=== PATIENT | male | born 1960 | race Caucasian/White ===

== ENCOUNTER 2020-12-18 19:40 | Inpatient (IN) ==
--- NOTE | 2020-12-18 20:03 | Emergency Department Note ---
Impression & Plan Atrial fibrillation with rapid ventricular response, Acute non-ST elevation myocardial infarction (NSTEMI) ED Provider Note NAME: WESTON RODRIGUEZ JR AGE: 60 SEX: M : 1960 ARRIVES VIA: Walk-In INFORMANT: Patient, ED PROVIDER(S): Michi Waite MD Chief Complaint: Chest pain HPI: Patient does present with intermittent chest pain that he describes as a tightness centralized and nonradiating. No prior history of heart or lung disease. The patient does take medication for hypertension denies any recent ch anges or missed doses. Patient states that he did have recurrence of some chest tightness but he does not believe it is worse with exertion. The patient denies any fevers or chills. No shortness of breath or cough. Patient is vaccinated for Covid. No lower extremity swelling. No history of DVT or PE. Patient has not noticed any increase in heart rate. Patient denies any alcohol tobacco or drug use. Patient does relate that he has family history of heart attack in his father in his 50s. Patiently currently rates his discomfort as a 3 or 4 out of 10. Patient states there are no exacerbating or remitting factors. ROS: See HPI for pertinent positives and negatives. A total of 10 systems were reviewed and otherwise negative. Past medical history: See below Surgical history: See below Social history: See below Physical Exam: GENERAL: NAD, wearing glasses, wearing a mask, non-toxic. EYE EXAM: Normal conjunctiva. PERRL, no anisocoria and EOM's grossly intact w/o pain. NECK: Supple, no nuchal rigidity, no adenopathy, non-tender. No signs of meningismus. LUNGS: Clear to auscultation. Normal chest wall mechanics. HEART: Tachycardic and irregularly irregular, no MRG. ABDOMEN: Abdomen soft, non-tender, normo-active bowel sounds, no masses, no rebound or guarding. BACK: No CVA TTP. SKIN: No rashes and no bruising. UPPER EXTREMITIES: Upper extremities are grossly normal. LOWER EXTREMITIES: Grossly normal, no edema. Negative Homans' sign bilaterally. NEURO EXAM: A&O x3, cranial nerves II-XII grossly intact, normal speech, moves all 4 extremities on command w/o issue. Differential diagnoses: Cardiac ischemia, aortic dissection, pulmonary embolism, pneumothorax, pneumonia, pericarditis, myocarditis, esophageal rupture, GERD, cholecystitis, pancreatitis, musculoskeletal, as well as other pathologies. Course: Patient was seen and evaluated the bedside. Full history physical exam was performed. EKG interpreted by me A. fib with RVR, rate of 139, normal QRS, normal axis, ST depressions anteriorly and laterally. Acute change from comparison EKG in 2013. Repeat EKG interpreted by me completed at 2148 A. fib with RVR, rate of 119, QRS is normal, normal axis, ST depressions have improved anteriorly. Repeat EKG interpreted by me completed at 2233 Normal sinus rhythm, rate of 84, normal intervals, normal axis, T wave inversion in lead III. ST depressions are not present anteriorly or laterally. Imaging Studies: See Below Cardiac monitoring: An order was placed for continuous cardiac monitoring. The monitor shows a rate of 128 with irregularly irregular rhythm. MDM: Patient does present with chest pain. Blood work is obtained. Patient's EKG does show some ST depressions but may be rate related. Patient states his pain is currently 3 out of 10. The patient has not had any nausea vomiting or exertional symptoms. No prior history of heart or lung disease. The patient was ordered aspirin and Lopressor. Given the possibility of NSTEMI versus the A. fib Heparin was ordered. Patient did have improvement in his heart rate and the depressions that were seen in the previous EKG. Subsequently the patient was in normal sinus rhythm. I did speak with the on-call dural mechanic Dr. Balderas who agreed with the current plan of care given the improvement in the heart rate and ST changes initially seen. I did speak with the on-call hospitalist Dr. Dooley and the patient was admitted to the medicine service. Patient did convert back to normal sinus rhythm. Critical Care: I have personally spent 95 minutes of critical care time in direct management of this patient. This includes bedside care, interpretation of diagnostic studies, and testing, discussion with consultants, patient, and family members, and other require inpatient management activities. This 95 minutes is in excess of all separately billable procedures. Past Med/Surg History Medical History H/O: HTN (hypertension) Surgical History No pertinent past surgical history Family History Father Heart disease Social History Smoking Status: Never smoker Second Hand Exposure: No; Do You Dip or Chew Tobacco: No; Tobacco Cessation Education Requested by Patient: No Hx Alcohol Use: No Hx Substance Use: No Preferred Language: Bruneian Communication Ability: Effective Managed Care Analyst Required: No Beliefs That Will Affect Care: None Current Living Situation: Significant Other Other Information That Helps Us Care for You: No Feels Safe at Home: Yes Safety Concerns: Feels Safe At This Time Assistive Devices: None Allergies Allergies Allergy/AdvReac Type Severity Reaction Status Date / Time No Known Allergies Allergy Unverified 12/18/20 21:13 Home Meds Home Medications Medication Instructions Recorded Confirmed albuterol sulfate 90 mcg/actuation 2 puff INHALATION Q6H PRN 12/18/20 12/18/20 aerosol inhaler aspirin 81 mg tablet,delayed 81 mg PO HS 12/18/20 12/18/20 release diphenhydramine HCl 25 mg tablet 12.5 mg PO HS PRN 12/18/20 12/18/20 labetalol 200 mg tablet 200 mg PO BID 12/18/20 12/18/20 loratadine 10 mg tablet 10 mg PO DAILY PRN 12/18/20 12/18/20 sertraline 100 mg tablet 150 mg PO DAILY 12/18/20 12/18/20 Results & Data (ED) Vital Signs Vital Signs - 24 hr 12/18/20 19:47 12/18/20 20:28 12/18/20 20:35 Temperature 36.6 C Temperature Source Temporal Artery Scan Pulse Rate 72 156 H 128 H Pulse Rate from SpO2 Sensor 143 H Respiratory Rate 16 24 Respiratory Depth Normal Blood Pressure 214/91 H 179/122 H Blood Pressure Mean 132 Blood Pressure Position Sitting Pulse Oximetry 94 94 Oxygen Delivery Method Room Air Room Air Sepsis Recent Fever Within 48 Hours No Sepsis New/Unexplained Change in Mental Status No Sepsis Action Taken by Nursing No Action Required 12/18/20 21:00 12/18/20 21:24 12/18/20 21:30 Temperature Temperature Source Pulse Rate 138 H 124 H 117 H Pulse Rate from SpO2 Sensor 117 H 111 H Respiratory Rate 21 24 Respiratory Depth Blood Pressure 134/102 H 148/101 H Blood Pressure Mean 116 Blood Pressure Position Pulse Oximetry 95 95 Oxygen Delivery Method Room Air Room Air Sepsis Recent Fever Within 48 Hours Sepsis New/Unexplained Change in Mental Status Sepsis Action Taken by Nursing 12/18/20 22:00 12/18/20 22:05 12/18/20 22:30 Temperature Temperature Source Pulse Rate 131 H 128 H 84 Pulse Rate from SpO2 Sensor 108 H 84 Respiratory Rate 27 H 26 H Respiratory Depth Blood Pressure 124/93 124/93 132/79 Blood Pressure Mean 103 96 Blood Pressure Position Pulse Oximetry 93 95 Oxygen Delivery Method Room Air Room Air Sepsis Recent Fever Within 48 Hours Sepsis New/Unexplained Change in Mental Status Sepsis Action Taken by Jail Medications Current Medication List: was personally reviewed by me Laboratory Data Attestation: I reviewed the patient's lab results. Result diagrams: 12/18/20 19:55 12/18/20 19:55 Lab Results 12/18/20 12/18/20 12/18/20 Range/Units 19:55 19:55 19:55 WBC 15.89 H (4.8-10.8) K/uL RBC 5.04 (4.7-6.1) M/uL Hgb 16.2 (14.0-18.0) g/dL Hct 47.1 (42-52) % MCV 93.5 (80-100) fL MCH 32.1 (25-34) pg MCHC 34.4 (32-36) g/dL RDW Std Deviation 48.4 H (36.4-46.3) fL RDW Coeff of Joon 14.2 (11.5-14.5) % Plt Count 262 (130-400) K/uL MPV 10.5 H (7.4-10.4) fL Immature Gran % (Auto) 0.3 % Neut % (Auto) 85.8 % Lymph % (Auto) 8.6 % Alexander % (Auto) 4.1 % Eos % (Auto) 1.1 % Baso % (Auto) 0.1 % Neut # (Auto) 13.62 H (1.4-6.5) K/uL Lymph # (Auto) 1.37 (1.2-3.4) K/uL Alexander # (Auto) 0.65 H (0.11-0.59) K/uL Eos # (Auto) 0.18 (0-0.5) K/uL Baso # (Auto) 0.02 (0-0.2) K/uL Immature Gran # (Auto) 0.05 H (0.00-0.02) K/uL PT 10.3 (9.0-12.0) Seconds INR 1.0 (0.9-1.1) APTT 26.5 (21.0-31.0) Seconds PTT Ratio 1.0 Sodium 140 (136-145) mmol/L Potassium 4.0 (3.5-5.1) mmol/L Chloride 109 H (98-107) mmol/L Carbon Dioxide 25 (21-32) mmol/L Anion Gap 6.0 (3-11) BUN 16 (7-18) mg/dl Creatinine 1.15 (0.6-1.4) mg/dl Est Cr Clr Drug Dosing 84.5 ml/min Est GFR ( Amer) 80.3 ml/min Est GFR (Non-Af Amer) 69.3 ml/min BUN/Creatinine Ratio 13.8 (10-20) Glucose 219 H (70-99) mg/dl Calcium 9.4 (8.5-10.1) mg/dl Phosphorus (2.5-4.9) mg/dl Magnesium (1.8-2.4) mg/dl Total Bilirubin 0.6 (0.2-1) mg/dl AST 21 (15-37) U/L ALT 31 (12-78) U/L Alkaline Phosphatase 68 (45-117) U/L Troponin I 1.150 H* (0-0.045) ng/ml Total Protein 7.9 (6.4-8.2) gm/dl Albumin 3.9 (3.4-5.0) gm/dl Globulin 4.0 (2.5-4.0) gm/dl Albumin/Globulin Ratio 1.0 (0.9-2) Lipase (73-393) U/L Procalcitonin (0-0.5) ng/ml TSH (0.300-4.500) uIu/ml COVID-19 Eval Order SARS-CoV-2 (PCR) (Negative) 12/18/20 12/18/20 12/18/20 Range/Units 19:55 19:55 20:39 WBC (4.8-10.8) K/uL RBC (4.7-6.1) M/uL Hgb (14.0-18.0) g/dL Hct (42-52) % MCV (80-100) fL MCH (25-34) pg MCHC (32-36) g/dL RDW Std Deviation (36.4-46.3) fL RDW Coeff of Joon (11.5-14.5) % Plt Count (130-400) K/uL MPV (7.4-10.4) fL Immature Gran % (Auto) % Neut % (Auto) % Lymph % (Auto) % Alexander % (Auto) % Eos % (Auto) % Baso % (Auto) % Neut # (Auto) (1.4-6.5) K/uL Lymph # (Auto) (1.2-3.4) K/uL Alexander # (Auto) (0.11-0.59) K/uL Eos # (Auto) (0-0.5) K/uL Baso # (Auto) (0-0.2) K/uL Immature Gran # (Auto) (0.00-0.02) K/uL PT (9.0-12.0) Seconds INR (0.9-1.1) APTT (21.0-31.0) Seconds PTT Ratio Sodium (136-145) mmol/L Potassium (3.5-5.1) mmol/L Chloride (98-107) mmol/L Carbon Dioxide (21-32) mmol/L Anion Gap (3-11) BUN (7-18) mg/dl Creatinine (0.6-1.4) mg/dl Est Cr Clr Drug Dosing ml/min Est GFR ( Amer) ml/min Est GFR (Non-Af Amer) ml/min BUN/Creatinine Ratio (10-20) Glucose (70-99) mg/dl Calcium (8.5-10.1) mg/dl Phosphorus 3.3 (2.5-4.9) mg/dl Magnesium 2.3 (1.8-2.4) mg/dl Total Bilirubin (0.2-1) mg/dl AST (15-37) U/L ALT (12-78) U/L Alkaline Phosphatase (45-117) U/L Troponin I (0-0.045) ng/ml Total Protein (6.4-8.2) gm/dl Albumin (3.4-5.0) gm/dl Globulin (2.5-4.0) gm/dl Albumin/Globulin Ratio (0.9-2) Lipase 169 (73-393) U/L Procalcitonin < 0.05 (0-0.5) ng/ml TSH 0.737 (0.300-4.500) uIu/ml COVID-19 Eval Order Covid19 at [facility] SARS-CoV-2 (PCR) (Negative) 12/18/20 Range/Units 20:39 WBC (4.8-10.8) K/uL RBC (4.7-6.1) M/uL Hgb (14.0-18.0) g/dL Hct (42-52) % MCV (80-100) fL MCH (25-34) pg MCHC (32-36) g/dL RDW Std Deviation (36.4-46.3) fL RDW Coeff of Joon (11.5-14.5) % Plt Count (130-400) K/uL MPV (7.4-10.4) fL Immature Gran % (Auto) % Neut % (Auto) % Lymph % (Auto) % Alexander % (Auto) % Eos % (Auto) % Baso % (Auto) % Neut # (Auto) (1.4-6.5) K/uL Lymph # (Auto) (1.2-3.4) K/uL Alexander # (Auto) (0.11-0.59) K/uL Eos # (Auto) (0-0.5) K/uL Baso # (Auto) (0-0.2) K/uL Immature Gran # (Auto) (0.00-0.02) K/uL PT (9.0-12.0) Seconds INR (0.9-1.1) APTT (21.0-31.0) Seconds PTT Ratio Sodium (136-145) mmol/L Potassium (3.5-5.1) mmol/L Chloride (98-107) mmol/L Carbon Dioxide (21-32) mmol/L Anion Gap (3-11) BUN (7-18) mg/dl Creatinine (0.6-1.4) mg/dl Est Cr Clr Drug Dosing ml/min Est GFR ( Amer) ml/min Est GFR (Non-Af Amer) ml/min BUN/Creatinine Ratio (10-20) Glucose (70-99) mg/dl Calcium (8.5-10.1) mg/dl Phosphorus (2.5-4.9) mg/dl Magnesium (1.8-2.4) mg/dl Total Bilirubin (0.2-1) mg/dl AST (15-37) U/L ALT (12-78) U/L Alkaline Phosphatase (45-117) U/L Troponin I (0-0.045) ng/ml Total Protein (6.4-8.2) gm/dl Albumin (3.4-5.0) gm/dl Globulin (2.5-4.0) gm/dl Albumin/Globulin Ratio (0.9-2) Lipase (73-393) U/L Procalcitonin (0-0.5) ng/ml TSH (0.300-4.500) uIu/ml COVID-19 Eval Order SARS-CoV-2 (PCR) NEGATIVE (Negative) Administered Medications Heparin Sodium/Dextrose (Heparin Sodium/Dextrose) 25,000 units in 500 mls @ 20 mls/hr IV .Q24H [facility]; Protocol Stop: 01/17/21 20:59 Last Admin: 12/18/20 21:00 Dose: 1,000 units/hr, 20 mls/hr Documented by: [id number] Cosigned by: [id number] Lactated Ringer's (Lr) 1,000 mls @ 80 mls/hr IV .[id number] STA Stop: 12/19/20 11:07 Last Admin: 12/18/20 22:53 Dose: 80 mls/hr Documented by: [id number] Discontinued Medications Aspirin (Aspirin Chew 324 Mg) 324 mg PO NOW STA Stop: 12/18/20 20:11 Last Admin: 12/18/20 20:27 Dose: 324 mg Documented by: [id number] Heparin Sodium (Porcine) (Heparin Sod (Porcine) 1000 Unit/Ml) 1 units IV NOW ONE Stop: 12/18/20 20:52 Last Admin: 12/18/20 21:00 Dose: 4,000 units Documented by: [id number] Cosigned by: [id number] Heparin Sodium (Porcine) (Heparin Sod (Porcine) 1000 Unit/Ml) 4,000 units IV NOW ONE Stop: 12/18/20 21:16 Last Admin: 12/18/20 21:54 Dose: Not Given Documented by: [id number] Heparin Sodium/Dextrose (Heparin Iv Adult Wt-Based Low-Dose With Bolus Protocol) 1 ea IV NOW STA; Protocol Stop: 12/18/20 20:37 Last Admin: 12/18/20 21:01 Dose: Not Given Documented by: [id number] Sodium Chloride (Nss 1000ml) 500 mls @ 999 mls/hr IV .Q31M ONE Stop: 12/18/20 20:43 Last Infusion: 12/18/20 21:54 Dose: 0 mls/hr Documented by: [id number] Admin: 12/18/20 20:30 Dose: 999 mls/hr Documented by: [id number] Lactated Ringer's (Lr) 1,000 mls @ 200 mls/hr IV .Q5H ONE Stop: 12/19/20 03:14 Last Admin: 12/19/20 00:18 Dose: Not Given Documented by: [id number] Labetalol HCl (Labetalol Hcl 200 Mg Tab) 200 mg PO NOW STA Stop: 12/18/20 22:17 Last Admin: 12/18/20 22:53 Dose: 200 mg Documented by: [id number] Metoprolol Tartrate (Metoprolol Tartrate 1 Mg/Ml Vial) 5 mg IV NOW STA Stop: 12/18/20 20:11 Last Admin: 12/18/20 20:28 Dose: 5 mg Documented by: [id number] Metoprolol Tartrate (Metoprolol Tartrate 1 Mg/Ml Vial) 5 mg IV Q5M PRN PRN Reason: Tachycardia Stop: 01/17/21 21:15 Last Admin: 12/18/20 22:05 Dose: 5 mg Documented by: [id number] Admin: 12/18/20 21:24 Dose: 5 mg Documented by: [id number] Nitroglycerin (Nitroglycerin Sl 0.4 Mg/Tab Tab) 0.4 mg SL NOW STA Stop: 12/18/20 21:37 Last Admin: 12/18/20 21:53 Dose: 0.4 mg Documented by: [id number] Imaging Data Radiologist's Impression: Chest X-Ray 12/18/20 19:54 XR chest 1V portable CLINICAL HISTORY: Chest Pain COMPARISON STUDY: Chest radiograph October 27, 2012. FINDINGS: There is borderline cardiomegaly. Slight elevation of the left hemidiaphragm is present. Minimal left basilar opacity favors atelectasis. No consolidation is identified. There is no evidence for pulmonary edema. Patient is slightly rotated. IMPRESSION: No acute cardiopulmonary findings. ACT 112: Negative or not required by law. Electronically signed by: González Nunez M.D. 12/18/2020 8:21 PM Discharge Plan Visit Data Chief Complaint: Chest Pain Stated Complaint: TIGHTNESS IN CHEST ED Provider: Michi Waite Discharge Problem: Atrial fibrillation with rapid ventricular response, Acute non-ST elevation myocardial infarction (NSTEMI) Patient Disposition: Admitted As Inpatient Discharge Instructions Interventions: ED Discharge Assessment Last Done: 12/18/20 23:19
[2020-12-18] MEDS ORDERED: METOPROLOL TARTRATE 1 MG/ML VIAL IV STA (20:10)
[2020-12-18] MEDS ORDERED: ASPIRIN CHEW 324 MG PO STA (20:10)
[2020-12-18] MEDS ORDERED: SODIUM CHLORIDE 0.9% 1000ML 500 ML IV ONE (20:13)
[2020-12-18 20:14] LABS: Basophils # (auto) 0.02 K/uL (0-0.2); Basophils % (auto) 0.1 %; Eosinophils # (auto) 0.18 K/uL (0-0.5); Eosinophils % (auto) 1.1 %; Hematocrit (blood only) 47.1 % (42-52); Hemoglobin 16.2 g/dL (14.0-18.0); Immature Granulocytes # (auto) 0.05 K/uL (0.00-0.02); Immature Granulocytes % (auto) 0.3 %; Lymphocytes # (auto) 1.37 K/uL (1.2-3.4); Lymphocytes % (auto) 8.6 %; Mean Corpuscular Hemoglobin 32.1 pg (25-34); Mean Corpuscular Hgb Conc 34.4 g/dL (32-36); Mean Corpuscular Volume 93.5 fL (80-100); Mean Platelet Volume 10.5 fL (7.4-10.4); Monocytes # (auto) 0.65 K/uL (0.11-0.59); Monocytes % (auto) 4.1 %; Neutrophils # (auto) 13.62 K/uL (1.4-6.5); Neutrophils % (auto) 85.8 %; Platelet Count 262 K/uL (130-400); RDW Coefficient of Variation 14.2 % (11.5-14.5); RDW Standard Deviation 48.4 fL (36.4-46.3); Red Blood Count 5.04 M/uL (4.7-6.1); White Blood Count 15.89 K/uL (4.8-10.8)
--- NOTE | 2020-12-18 20:22 | XRay Report ---
XR chest 1V portable CLINICAL HISTORY: Chest Pain COMPARISON STUDY: Chest radiograph October 27, 2012. FINDINGS: There is borderline cardiomegaly. Slight elevation of the left hemidiaphragm is present. Mi nimal left basilar opacity favors atelectasis. No consolidation is identified. There is no evidence f or pulmonary edema. Patient is slightly rotated. IMPRESSION: No acute cardiopulmonary findings. ACT 112: Negative or not required by law. Electronically signed by: González Nunez M.D. 12/18/2020 8:21 PM
[2020-12-18 20:25] LABS: Partial Thromboplastin Time 26.5 Seconds (21.0-31.0); Prothrombin Time 10.3 Seconds (9.0-12.0)
[2020-12-18] MEDS ORDERED: Heparin IV Adult Wt-Based Low-Dose WITH Bolus Protocol IV STA (20:36)
[2020-12-18 20:38] LABS: Albumin Level 3.9 gm/dl (3.4-5.0); BUN Creatinine Ratio 13.8 (10-20); Calcium 9.4 mg/dl (8.5-10.1); Creatinine Clr Calc Pharmacy 84.5 ml/min; Est GFR (African American) 80.3 ml/min; Est GFR (Non-African American) 69.3 ml/min
[2020-12-18] MEDS ORDERED: HEPARIN SOD (PORCINE) 1000 UNIT/ML IV ONE ×2 (20:51→21:15)
[2020-12-18] MEDS: HEPARIN SODIUM/DEXTROSE 25,000 UNITS/500 ML BAG IV SCH (21:00)
[2020-12-18] MEDS: METOPROLOL TARTRATE 1 MG/ML VIAL IV PRN ×2 (21:24→22:05)
[2020-12-18 21:32] LABS: Bilirubin,Total 0.6 mg/dl (0.2-1); Total Protein 7.9 gm/dl (6.4-8.2); Troponin I 1.15 ng/ml (0-0.045)
[2020-12-18] MEDS ORDERED: NITROGLYCERIN SL 0.4 MG/TAB TAB SL STA (21:36)
[2020-12-18 21:52] LABS: Magnesium 2.3 mg/dl (1.8-2.4); Phosphorus 3.3 mg/dl (2.5-4.9)
[2020-12-18] MEDS ORDERED: LACTATED RINGER'S 1,000 ML IV ONE (22:15)
[2020-12-18] MEDS ORDERED: LABETALOL HCL 200 MG TAB PO STA (22:16)
--- NOTE | 2020-12-18 22:35 | History & Physical Report ---
Date of Service December 18, 2020 Assessment & Plan (1) Acute non-ST elevation myocardial infarction (NSTEMI): Plan: Hypertensive crisis, BP currently improved after initial intervention at the ER Rapid A. fib status post conversion at the ER anxiety/mood disorder, at baseline prediabetes, hemoglobin A1c of 6.11 September 2020 PCU Aspirin, beta-becky, statin Rx for NSTEMI IV Heparin both for NSTEMI and new onset A. fib thromboembolic prophylaxis TTE, Cardiology consult Re: ACS (ER provider already in touch with Dr. Balderas.) N.p.o. after midnight in anticipation of procedure in a.m. Update lipid profile and hemoglobin A1c DVT prophylaxis. IV heparin Full code Patient's partner requesting updates from providers. Aaliyah Kirk, contact #[phone]. Text document was generated using [employer] voice recognition software. It may contain grammatical or spelling errors. Kindly contact undersigned for clarification of any documentation item in question. History of Present Illness Chief Complaint: Chest pain Primary Care Provider: Kevin Villalba MD History obtained from patient, family, and records. Medical history significant for hypertension, anxiety/mood disorder, prediabetes, skin cancer as per records. 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 This week, patient noted intermittent episodes of substernal tightness without radiation associated with diaphoresis both at rest and exertion. Transient episodes. No cough, no S OB, no palpitations. No unusual stress at home. Transient headache symptoms. Patient does not check blood pressure at home. Denies unusual stress. Compliant with medications. SBP 210s upon arrival at the ER. Discomfort relieved by aspirin and nitroglycerin administration at the ER. Patient noted to be in rapid A. fib at the ER. IV Lopressor administered. IV Heparin started at the ER after elevated troponin noted. Subsequent conversion to normal sinus rhythm at the ER. Medical History as above Surgical History : Dental surgery Family History : Heart disease, glioblastoma, COPD, prostate cancer Personal/Social history : Non-smoker, no EtOH intake, office work Allergies Allergy/AdvReac Type Severity Reaction Status Date / Time No Known Allergies Allergy Unverified 12/18/20 21:13 Home Medications Medication Instructions Recorded Confirmed Type albuterol sulfate 90 mcg/actuation 2 puff INHALATION Q6H PRN 12/18/20 12/18/20 History aerosol inhaler aspirin 81 mg tablet,delayed 81 mg PO HS 12/18/20 12/18/20 History release diphenhydramine HCl 25 mg tablet 12.5 mg PO HS PRN 12/18/20 12/18/20 History labetalol 200 mg tablet 200 mg PO BID 12/18/20 12/18/20 History loratadine 10 mg tablet 10 mg PO DAILY PRN 12/18/20 12/18/20 History sertraline 100 mg tablet 150 mg PO DAILY 12/18/20 12/18/20 History Past Med/Surg History Medical History H/O: HTN (hypertension) Surgical History No pertinent past surgical history Family History Father Heart disease Social History Smoking Status: Never smoker Second Hand Exposure: No; Do You Dip or Chew Tobacco: No; Tobacco Cessation Education Requested by Patient: No Hx Alcohol Use: No Hx Substance Use: No Preferred Language: Yemeni Communication Ability: Effective Sole Inker Required: No Beliefs That Will Affect Care: None Current Living Situation: Significant Other Other Information That Helps Us Care for You: No Feels Safe at Home: Yes Safety Concerns: Feels Safe At This Time Assistive Devices: None Review of Systems Review of Systems: As per HPI, all 10 systems reviewed, all other ROS negative Physical Exam Physical Exam: GENERAL: Comfortable, slightly anxious, pleasant, obese, no respiratory distress SKIN: Normal color, warm HEENT: Partial alopecia, pink palpebral conjunctivae, no ptosis, dry buccal mucosa NECK : Supple, short neck, no tenderness CHEST : CTA, no tenderness HEART : RRR, no obvious murmurs ABDOMEN: Some distention, nontender EXTREMITIES : No LE swelling/tenderness, no other conspicuous deformities noted NEUROLOGIC : Coherent, no facial asymmetry, no other gross focality Results & Data Results & Data ([facility]) Vital Signs (Past 12 Hours) Vital Signs Temp Pulse Resp BP Pulse Ox 12/18/20 22:05 128 H 124/93 12/18/20 22:00 131 H 27 H 124/93 93 12/18/20 21:30 117 H 24 148/101 H 95 12/18/20 21:24 124 H 134/102 H 12/18/20 21:00 138 H 21 95 12/18/20 20:35 128 H 24 94 12/18/20 20:28 156 H 179/122 H 12/18/20 19:47 36.6 C 72 16 214/91 H 94 Laboratory Results Laboratory Results WBC 15.89 K/uL (4.8-10.8) H 12/18/20 19:55 RBC 5.04 M/uL (4.7-6.1) 12/18/20 19:55 Hgb 16.2 g/dL (14.0-18.0) 12/18/20 19:55 Hct 47.1 % (42-52) 12/18/20 19:55 MCV 93.5 fL (80-100) 12/18/20 19:55 MCH 32.1 pg (25-34) 12/18/20 19:55 MCHC 34.4 g/dL (32-36) 12/18/20 19:55 RDW Std Deviation 48.4 fL (36.4-46.3) H 12/18/20 19:55 RDW Coeff of Joon 14.2 % (11.5-14.5) 12/18/20 19:55 Plt Count 262 K/uL (130-400) 12/18/20 19:55 MPV 10.5 fL (7.4-10.4) H 12/18/20 19:55 Immature Gran % (Auto) 0.3 % 12/18/20 19:55 Neut % (Auto) 85.8 % 12/18/20 19:55 Lymph % (Auto) 8.6 % 12/18/20 19:55 [place] % (Auto) 4.1 % 12/18/20 19:55 Eos % (Auto) 1.1 % 12/18/20 19:55 Baso % (Auto) 0.1 % 12/18/20 19:55 Neut # (Auto) 13.62 K/uL (1.4-6.5) H 12/18/20 19:55 Lymph # (Auto) 1.37 K/uL (1.2-3.4) 12/18/20 19:55 [place] # (Auto) 0.65 K/uL (0.11-0.59) H 12/18/20 19:55 Eos # (Auto) 0.18 K/uL (0-0.5) 12/18/20 19:55 Baso # (Auto) 0.02 K/uL (0-0.2) 12/18/20 19:55 Immature Gran # (Auto) 0.05 K/uL (0.00-0.02) H 12/18/20 19:55 PT 10.3 Seconds (9.0-12.0) 12/18/20 19:55 INR 1.0 (0.9-1.1) 12/18/20 19:55 APTT 26.5 Seconds (21.0-31.0) 12/18/20 19:55 PTT Ratio 1.0 12/18/20 19:55 Sodium 140 mmol/L (136-145) 12/18/20 19:55 Potassium 4.0 mmol/L (3.5-5.1) 12/18/20 19:55 Chloride 109 mmol/L (98-107) H 12/18/20 19:55 Carbon Dioxide 25 mmol/L (21-32) 12/18/20 19:55 Anion Gap 6.0 (3-11) 12/18/20 19:55 BUN 16 mg/dl (7-18) 12/18/20 19:55 Creatinine 1.15 mg/dl (0.6-1.4) 12/18/20 19:55 Est Cr Clr Drug Dosing 84.5 ml/min 12/18/20 19:55 Est GFR ( Amer) 80.3 ml/min 12/18/20 19:55 Est GFR (Non-Af Amer) 69.3 ml/min 12/18/20 19:55 BUN/Creatinine Ratio 13.8 (10-20) 12/18/20 19:55 Glucose 219 mg/dl (70-99) H 12/18/20 19:55 Calcium 9.4 mg/dl (8.5-10.1) 12/18/20 19:55 Phosphorus 3.3 mg/dl (2.5-4.9) 12/18/20 19:55 Magnesium 2.3 mg/dl (1.8-2.4) 12/18/20 19:55 Total Bilirubin 0.6 mg/dl (0.2-1) 12/18/20 19:55 AST 21 U/L (15-37) 12/18/20 19:55 ALT 31 U/L (12-78) 12/18/20 19:55 Alkaline Phosphatase 68 U/L (45-117) 12/18/20 19:55 Troponin I 1.150 ng/ml (0-0.045) H* 12/18/20 19:55 Total Protein 7.9 gm/dl (6.4-8.2) 12/18/20 19:55 Albumin 3.9 gm/dl (3.4-5.0) 12/18/20 19:55 Globulin 4.0 gm/dl (2.5-4.0) 12/18/20 19:55 Albumin/Globulin Ratio 1.0 (0.9-2) 12/18/20 19:55 Lipase 169 U/L (73-393) 12/18/20 19:55 COVID-19 Eval Order Covid19 at [facility] 12/18/20 20:39 SARS-CoV-2 (PCR) NEGATIVE (Negative) 12/18/20 20:39 Impressions Chest X-Ray 12/18/20 19:54 XR chest 1V portable CLINICAL HISTORY: Chest Pain COMPARISON STUDY: Chest radiograph October 27, 2012. FINDINGS: There is borderline cardiomegaly. Slight elevation of the left hemidiaphragm is present. Minimal left basilar opacity favors atelectasis. No consolidation is identified. There is no evidence for pulmonary edema. Patient is slightly rotated. IMPRESSION: No acute cardiopulmonary findings. ACT 112: Negative or not required by law. Electronically signed by: González Nunez M.D. 12/18/2020 8:21 PM Diagnostic Findings EKG as per my dictation rate 120, A. fib, normal axis, no ischemia
[2020-12-18] MEDS ORDERED: LACTATED RINGER'S 1,000 ML IV STA (22:38)
[2020-12-18 23:22] LABS: Thyroid Stimulating Hormone 0.737 uIu/ml (0.300-4.500)
[2020-12-19] MEDS ORDERED: ACETAMINOPHEN 325 MG TAB PO PRN (00:13)
[2020-12-19] MEDS ORDERED: traMADol HCL 50 MG TABLET PO PRN (00:13)
[2020-12-19] MEDS ORDERED: NITROGLYCERIN SL 0.4 MG/TAB TAB SL PRN (00:13)
[2020-12-19] MEDS ORDERED: MoRPHine SULFATE 4 MG/ML 1 ML CARP\\VIAL IV PRN (00:13)
[2020-12-19] MEDS ORDERED: PROMETHAZINE HCL 12.5 MG in SODIUM CHLORIDE 0.9% 50 ML IV PRN (00:13)
[2020-12-19] MEDS ORDERED: LORATADINE 10 MG TAB PO PRN (00:13)
[2020-12-19] MEDS ORDERED: LORazepam 0.5 MG/1 ML VIAL IV PRN (00:13)
[2020-12-19 03:38] LABS: Basophils # (auto) 0.02 K/uL (0-0.2); Basophils % (auto) 0.2 %; Eosinophils % (auto) 2.4 %; Hematocrit (blood only) 44.2 % (42-52); Hemoglobin 14.8 g/dL (14.0-18.0); Immature Granulocytes # (auto) 0.03 K/uL (0.00-0.02); Immature Granulocytes % (auto) 0.2 %; Lymphocytes # (auto) 2.18 K/uL (1.2-3.4); Lymphocytes % (auto) 17.4 %; Mean Corpuscular Hemoglobin 31.7 pg (25-34); Mean Corpuscular Hgb Conc 33.5 g/dL (32-36); Mean Corpuscular Volume 94.6 fL (80-100); Mean Platelet Volume 10.5 fL (7.4-10.4); Monocytes # (auto) 1.04 K/uL (0.11-0.59); Monocytes % (auto) 8.3 %; Neutrophils # (auto) 8.99 K/uL (1.4-6.5); Neutrophils % (auto) 71.5 %; Platelet Count 243 K/uL (130-400); RDW Coefficient of Variation 14.5 % (11.5-14.5); RDW Standard Deviation 49.9 fL (36.4-46.3); Red Blood Count 4.67 M/uL (4.7-6.1); White Blood Count 12.56 K/uL (4.8-10.8)
[2020-12-19 03:55] LABS: Partial Thromboplastin Ratio 1.2; Partial Thromboplastin Time 31.1 Seconds (21.0-31.0)
[2020-12-19 03:59] LABS: BUN Creatinine Ratio 19.8 (10-20); Calcium 8.9 mg/dl (8.5-10.1); Creatinine Clr Calc Pharmacy 112.2 ml/min; Est GFR (Non-African American) 94.9 ml/min
[2020-12-19 04:13] LABS: Troponin I 7.02 ng/ml (0-0.045)
[2020-12-19] MEDS ORDERED: HEPARIN SOD (PORCINE) 1000 UNIT/ML IV ONE ×2 (04:30→23:45)
[2020-12-19 07:22] LABS: Estimated Average Glucose 131 mg/dl; Hemoglobin A1C 6.2 % (4.5-5.6)
[2020-12-19] MEDS ORDERED: FLUARIX QUADRIVALENT 0.5 ML SYR IM ONE (08:00)
[2020-12-19] MEDS: SERTRALINE HCL 50 MG TABLET PO SCH (08:26)
[2020-12-19] MEDS: LABETALOL HCL 200 MG TAB PO SCH ×2 (08:26→21:24)
[2020-12-19] MEDS ORDERED: ATORVASTATIN 40 MG TAB PO SCH (09:00)
[2020-12-19] MEDS ORDERED: Nursing to Pharmacy Communication SCH ×2 (09:00→15:45)
--- NOTE | 2020-12-19 09:52 | Electrocardiogram Report ---
Test Reason : Blood Pressure : / mmHG Vent. Rate : 139 BPM Atrial Rate : 170 BPM P-R Int : 000 ms QRS Dur : 108 ms QT Int : 322 ms P-R-T Axes : 000 039 -35 degrees QTc Int : 489 ms Atrial fibrillation with rapid ventricular response Marked ST abnormality, possible anterior subendocardial injury Abnormal ECG When compared with ECG of 28-OCT-2012 06:52, Significant changes have occurred Confirmed by Baldomero Mae ([id number]) on 12/19/2020 9:51:47 AM Referred By: REFERRED SELF Confirmed By:Baldomero Mae
--- NOTE | 2020-12-19 09:57 | Electrocardiogram Report ---
Test Reason : Blood Pressure : / mmHG Vent. Rate : 119 BPM Atrial Rate : 147 BPM P-R Int : 000 ms QRS Dur : 108 ms QT Int : 292 ms P-R-T Axes : 000 026 -26 degrees QTc Int : 410 ms Atrial fibrillation with rapid ventricular response Inferior infarct (cited on or before 18-DEC-2020) Abnormal ECG When compared with ECG of 18-DEC-2020 19:51, (unconfirmed) ST less depressed in Anterior leads Confirmed by Baldomero Mae ([id number]) on 12/19/2020 9:56:55 AM Referred By: REFERRED SELF Confirmed By:Baldomero Mae
--- NOTE | 2020-12-19 09:59 | Electrocardiogram Report ---
Test Reason : Blood Pressure : / mmHG Vent. Rate : 084 BPM Atrial Rate : 084 BPM P-R Int : 142 ms QRS Dur : 102 ms QT Int : 372 ms P-R-T Axes : 058 019 -14 degrees QTc Int : 439 ms Poor data quality, interpretation may be adversely affected Normal sinus rhythm Possible Left atrial enlargement Inferior infarct (cited on or before 18-DEC-2020) Abnormal ECG When compared with ECG of 18-DEC-2020 21:48, (unconfirmed) Sinus rhythm has replaced Atrial fibrillation Confirmed by Baldomero Mae ([id number]) on 12/19/2020 9:58:29 AM Referred By: REFERRED SELF Confirmed By:Baldomero Mae
--- NOTE | 2020-12-19 10:04 | Electrocardiogram Report ---
Test Reason : Blood Pressure : / mmHG Vent. Rate : 069 BPM Atrial Rate : 069 BPM P-R Int : 146 ms QRS Dur : 112 ms QT Int : 420 ms P-R-T Axes : 048 -05 008 degrees QTc Int : 450 ms Normal sinus rhythm Left atrial enlargement Inferior infarct (cited on or before 18-DEC-2020) Abnormal ECG When compared with ECG of 18-DEC-2020 22:33, (unconfirmed) No significant change was found Confirmed by Baldomero Mae ([id number]) on 12/19/2020 10:04:02 AM Referred By: REFERRED SELF Confirmed By:Baldomero Mae
--- NOTE | 2020-12-19 10:22 | Hospitalist Progress Note ---
Date of Service December 19, 2020 Assessment & Plan (1) Acute non-ST elevation myocardial infarction (NSTEMI): Plan: NSTEMI Severe multivessel coronary artery disease S/P Cardiac Cath:Severe multivessel coronary artery disease. 70% mid LAD. 100% mid circumflex at takeoff of OM 2. Distal left PLB, OM 2 fills via left to left collaterals. 100% proximal RCA chronic total occlusion. Distal vessel fills via [id number] collaterals. -ECHO: Left ventricle systolic function is normal. Inferoposterior wall hypokinesis. Mild concentric LVH. EF 50 to 55%. Mild mitral regurgitation. Needs CABG Continue aspirin, Labetalol, statin, IV heparin NTG PRN Appreciate cardiology input Plan to be discharged to tertiary care facility for CABG Patient is accepted by Dr. Silvano Hart at [place] for further management New onset atrial fibrillation with RVR Spontaneously converted to sinus rhythm Continue labetalol On IV heparin for anticoagulation Hypertension Continue current medications Anxiety/mood disorder At baseline Prediabetes HbA1C: of 6.2 DVT Px: IV Heparin Code Status Full Code Disposition [facility] for [facility]G Admission and Anticipated Discharge Date Admission Date: December 18, 2020 Subjective Patient is seen and examined at bedside States that chest pain is much improved this morning Converted to sinus today Plan for cardiac catheterization today Discussed with cardiology today Denies dyspnea, dizziness, nausea, abdominal pain Review of Systems Review of Systems: All systems reviewed & are unremarkable except as noted in Subjective Physical Exam Physical Exam: Physical Exam: Vitals signs as noted above General Appearance:Obese, no apparent distress Head: normocephalic, Atraumatic Eyes: normal inspection, EOMI Neck: supple, Trachea midline Respiratory/Chest: Normal breath sounds, CTA, No accessory muscle use Cardiovascular: S1, S2, No murmur Abdomen/GI:Soft, Non tender, Bowel sounds present Extremities/Musculoskeletal:normal inspection, no edema Neurologic/Psych:AAOX3, grossly no focal neurological deficits Skin: normal color, warm Results & Data Results & Data ([facility]) Vital Signs (Past 12 Hours) Vital Signs Temp Pulse Pulse Resp BP BP Pulse Ox 12/19/20 09:09 71 12/19/20 08:06 36.8 C 67 17 146/93 H 97 12/19/20 03:06 36.8 C 71 16 126/77 96 12/19/20 00:16 36.5 C 74 16 124/76 95 12/18/20 23:30 83 25 H 121/75 96 12/18/20 23:09 84 12/18/20 23:00 78 21 95 12/18/20 22:54 79 16 123/76 96 12/18/20 22:30 84 26 H 132/79 95 Laboratory Results Short CBC 12/18/20 12/19/20 Range/Units 19:55 03:26 WBC 15.89 H 12.56 H (4.8-10.8) K/uL Hgb 16.2 14.8 (14.0-18.0) g/dL Hct 47.1 44.2 (42-52) % Plt Count 262 243 (130-400) K/uL BMP 12/18/20 12/19/20 19:55 03:26 Sodium 140 141 Potassium 4.0 4.0 Chloride 109 H 110 H Carbon Dioxide 25 29 BUN 16 17 Creatinine 1.15 0.86 Glucose 219 H 137 H Calcium 9.4 8.9 Cardiac Enzymes 12/18/20 12/19/20 Range/Units 19:55 03:26 Troponin I 1.150 H* 7.020 H* (0-0.045) ng/ml Liver Function 12/18/20 Range/Units 19:55 Total Bilirubin 0.6 (0.2-1) mg/dl AST 21 (15-37) U/L ALT 31 (12-78) U/L Alkaline Phosphatase 68 (45-117) U/L Albumin 3.9 (3.4-5.0) gm/dl
[2020-12-19] MEDS ORDERED: LACTATED RINGER'S 1,000 ML IV SCH (11:00)
--- NOTE | 2020-12-19 11:33 | XCELERA ---
[id number]
--- NOTE | 2020-12-19 11:41 | Cardiology Consultation ---
Date of Consultation December 19, 2020 Assessment & Plan (1) Atrial fibrillation with rapid ventricular response: -fortunately, he converted to sinus rhythm after intravenous metoprolol. -agree with intravenous heparin. -agree with continuation of labetalol. (2) Chest pain syndrome: -appears to experience angina pectoris with episodes of atrial fibrillation. -echocardiogram suggests a new infero posterior wall motion abnormality. -troponin elevated. -discussed with Dr. Balderas, will proceed with an urgent cardiac catheterization. (3) Elevated troponin: -significant elevation noted. (4) Hypertension: -adequate control on current regimen. -mild LVH noted on echocardiogram. History of Present Illness Attending Physician: Jaime Ledbetter MD History of Present Illness Mr. Rice is a 60-year-old male admitted yesterday with atrial fibrillation and rapid ventricular response along with a chest pain syndrome and elevated troponin I level. This consultation was ordered to assist in his cardiac management. The patient claims he was in his usual state of health until approximately 1 week ago. He began to note intermittent episodes of substernal chest tightness (uses the Cm sign) radiating down the left upper extremity. There were no other associated symptoms such as shortness of breath, nausea, vomiting, or diaphoresis. Last evening, while at a restaurant with his , the patient again developed substernal chest discomfort as described above. There is radiation down the left arm. His symptoms lasted for approximately 2 hours, and then, he presented to the emergency room for further care. On arrival here, patient was noted to be in atrial fibrillation with a rapid ventricular response. He was given intravenous metoprolol and started on a heparin drip. He spontaneously converted to sinus rhythm after approximately 1.5 hours. His symptoms resolved completely after he attained sinus rhythm. Of note, the patient did not experience palpitations with his episode of atrial fibrillation. The patient has never known of a cardiac event. He has never had a cardiac catheterization. Currently, patient is resting comfortably in bed without complaints. Past medical and surgical history 1. Hypertension 2. Paroxysmal atrial fibrillation-December 2020 3. Hyperglycemia 4. Anxiety/depression 5. History of Regalado's palsy Social history and lives with his Works at an [employer] office No tobacco alcohol Family history Father at 75 from sudden cardiac Mother at 72 from a glioblastoma Sister is alive and well Review of systems A 10 point review systems was undertaken and negative except for that described above. Allergies Allergy/AdvReac Type Severity Reaction Status Date / Time No Known Allergies Allergy Unverified 12/18/20 21:13 Home Medications Medication Instructions Recorded Confirmed Type albuterol sulfate 90 mcg/actuation 2 puff INHALATION Q6H PRN 12/18/20 12/18/20 History aerosol inhaler aspirin 81 mg tablet,delayed 81 mg PO HS 12/18/20 12/18/20 History release diphenhydramine HCl 25 mg tablet 12.5 mg PO HS PRN 12/18/20 12/18/20 History labetalol 200 mg tablet 200 mg PO BID 12/18/20 12/18/20 History loratadine 10 mg tablet 10 mg PO DAILY PRN 12/18/20 12/18/20 History sertraline 100 mg tablet 150 mg PO DAILY 12/18/20 12/18/20 History Patient History Medical History H/O: HTN (hypertension) Surgical History No pertinent past surgical history Family History Father Heart disease Social History Smoking Status: Never smoker Second Hand Exposure: No; Do You Dip or Chew Tobacco: No; Tobacco Cessation Education Requested by Patient: No Hx Alcohol Use: No Hx Substance Use: No Preferred Language: Turkmen Communication Ability: Effective 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 HEENT exam is negative. Neck is supple with full carotid upstrokes. There are no carotid bruits. Jugular venous pressure is flat at 90. There is no thyromegaly. Cardiovascular exam reveals a regular rhythm with a normal S1 and S2. No S3, S4, or murmurs are noted. Lungs are clear without rales, rhonchi, or wheezes. Abdomen is soft and nontender without bruits. Extremities reveal intact radial artery and posterior tibial pulses bilaterally. There is no peripheral edema. Results & Data ([facility]) Vital Signs (Past 12 Hours) Vital Signs Temp Pulse Pulse Resp BP Pulse Ox 12/19/20 09:09 71 12/19/20 08:06 36.8 C 67 17 146/93 H 97 12/19/20 03:06 36.8 C 71 16 126/77 96 12/19/20 00:16 36.5 C 74 16 124/76 95 Laboratory Results CBC notes hemoglobin of 14.8, hematocrit 44.2, white count 12.5, platelet count [id number]. Electrolytes note a sodium of 141, potassium 4.0, chloride 110, bicarb 29, BUN 17, creatinine 0.86, glucose of 137. Initial troponin was 1.15 with a follow-up value of 7.02. Diagnostic Findings Initial 2 EKGs noted atrial fibrillation with a rapid ventricular response. There was an anterior ST abnormality. Third tracing notes sinus rhythm with an inferior myocardial infarction pattern. Echocardiogram notes normal systolic function with ejection fraction 50-55%. There is infero posterior hypokinesis. There was mild LVH and mild mitral regurgitation. Chest x-ray shows no acute disease. PG Care Time/CCT Total # of Minutes Spent Total Time Spent with Patient: Total time spent is greater than 50% in coordination of care (as documented) at patient's floor/unit and/or counseling patient: Coding Level of Care Code 52344 Inpt Consult Level 5 Diagnoses Chest pain syndrome R07.9 Elevated troponin R77.8 Hypertension I10 Atrial fibrillation with rapid ventricular response I48.91
[2020-12-19 12:04] LABS: Partial Thromboplastin Ratio 1.3; Partial Thromboplastin Time 33.7 Seconds (21.0-31.0)
[2020-12-19] MEDS ORDERED: niCARdipine HCL INJ 2.5 MG/ML 10 ML AMP ONE (12:18)
[2020-12-19] MEDS ORDERED: fentaNYL citrate 100 MCG/2 ML VIAL ONE (12:18)
[2020-12-19] MEDS ORDERED: HEPARIN (PORCINE) 1000 UNIT/ML 10 ML (CATH LAB USE ONLY) ONE (12:18)
[2020-12-19] MEDS ORDERED: NITROGLYCERIN/D5W 100MCG/ML 20ML SYR ONE (12:19)
[2020-12-19] MEDS ORDERED: MIDAZOLAM HCL 1 MG/ML 2ML VIAL ONE (12:19)
--- NOTE | 2020-12-19 12:48 | Pre Anesthesia Assessment ---
Date of Service December 19, 2020 Pre Sedation Assessment Vital Signs Temp Pulse Pulse Resp BP BP Pulse Ox 12/19/20 11:40 98.2 F 68 18 129/83 97 12/19/20 09:09 71 12/19/20 08:06 98.2 F 67 17 146/93 H 97 12/19/20 03:06 98.2 F 71 16 126/77 96 12/19/20 00:16 97.7 F 74 16 124/76 95 12/18/20 23:30 83 25 H 121/75 96 12/18/20 23:09 84 12/18/20 23:00 78 21 95 12/18/20 22:54 79 16 123/76 96 12/18/20 22:30 84 26 H 132/79 95 12/18/20 22:05 128 H 124/93 12/18/20 22:00 131 H 27 H 124/93 93 12/18/20 21:30 117 H 24 148/101 H 95 12/18/20 21:24 124 H 134/102 H 12/18/20 21:00 138 H 21 95 12/18/20 20:35 128 H 24 94 12/18/20 20:28 156 H 179/122 H 12/18/20 19:47 97.9 F 72 16 214/91 H 94 Cardiovascular RRR, no murmur, no edema Respiratory normal respiratory effort, lungs clear to auscultation Pre-Sedation Airway Assessment Smoking Status: Never smoker Hx Sleep Apnea: No Hx Difficult Intubation: No Short, Thick Neck: No Thyromental Distance: > or= 3.5 Finger Breadths Oral Cavity: + WNL Mallampati Class: III Procedure Planning Contraindications for Sedation: none Current Medications Reviewed: Yes Notes The planned sedation has been discussed with the patient. Informed Consent was obtained. I have identified the patient, determined the appropriateness of sedation and have assessed the patient immediately prior to the procedure. All medicine(s) and interventions are by my order.
--- NOTE | 2020-12-19 13:11 | Post Anesthesia Assessment ---
Date of Service December 19, 2020 Post Sedation Assessment Vital Signs Temp Pulse Pulse Resp BP BP Pulse Ox 12/19/20 11:40 98.2 F 68 18 129/83 97 12/19/20 09:09 71 12/19/20 08:06 98.2 F 67 17 146/93 H 97 12/19/20 03:06 98.2 F 71 16 126/77 96 12/19/20 00:16 97.7 F 74 16 124/76 95 12/18/20 23:30 83 25 H 121/75 96 12/18/20 23:09 84 12/18/20 23:00 78 21 95 12/18/20 22:54 79 16 123/76 96 12/18/20 22:30 84 26 H 132/79 95 12/18/20 22:05 128 H 124/93 12/18/20 22:00 131 H 27 H 124/93 93 12/18/20 21:30 117 H 24 148/101 H 95 12/18/20 21:24 124 H 134/102 H 12/18/20 21:00 138 H 21 95 12/18/20 20:35 128 H 24 94 12/18/20 20:28 156 H 179/122 H 12/18/20 19:47 97.9 F 72 16 214/91 H 94 Recovery Score Activity: Moves 4 extremities Respiration: Deep Breath/Cough Circulation: +/-20% PreAnes Value Consciousness: Fully Awake Oxygen Saturation: O2 needed for >90% Discharge Sedation Level of Care: Fast Track Phase II Post Sedation Plan On clinical assessment, the patient appears to have tolerated the sedation without complications. Patient is recovering as anticipated. Patient will continue to be monitored by nursing and may be discharged when sedation discharge criteria are met per below protocol. Upon Completions of procedure up to 15 minutes continue every 5 minute vital signs and the P.A.R. score; then discharge to a Phase I or Fast Track to Phase II per the following guidelines: * Discharge Patient to appropriate Phase II area if PAR is 8 or greater or return to pre- procedure baseline. The post - procedure orders will be as directed. * If PAR score is less than 8 or not return to pre-procedure baseline then patient will follow Phase I monitoring till PAR is reached for Phase II. The Phase I may be done in procedure room or may call to secure a Phase I area. * If naloxone or flumazenil are used for reversal, hold in Phase I for continued monitoring from when last reversal dose was given for a minimum of 60 minutes or longer pending the nurse and/or physician discretion of patient condition before discharge to Phase II. Please call the Sedation Physician to re-evaluate and complete post-note for discharge to Phase II area. Do NOT discharge from procedure sedation or Phase 1 until post- sedation evaluation note is complete by procedure /sedation MD Sedation Discharge Instructions to be given to the patient at discharge to home.
--- NOTE | 2020-12-19 13:27 | Cardiac Catheterization ---
[facility] Data: B2B Sales Manager Cardiac Status Clinical evaluation leading to the procedure CAD Presenation: Non STEMI Anginal Classification: CCS IV Heart Failure: No Cardiogenic Shock within 24 Hours: No Cardiac Arrest within 24 Hours: No Imaging Studies Past 6 Months: Yes Stress Studies Past 6 Months: No Diagnostic Physicians Name: Kilo Balderas MD Status: Elective Closure Device Closure Device: Radial Band Recommendations: CABG Intraprocedure Events Significant Disection: No Perforation: No Cardiac Cath Procedure Full Procedure Date December 19, 2020 Pre-Procedure Diagnosis Pre-Procedure Diagnosis: Non STEMI AUC Score AUC Score: 8 Post-Procedure Diagnosis Post-Procedure Diagnosis: Severe CAD and Elevated Intracardiac Pressures Procedure(s) Performed Procedure(s) Performed: Coronary Angiography and Left Heart Cath Stock Patch Sawyer Kilo Balderas MD Wedding Florist(s) [place] Estimated Blood Loss Estimated Blood Loss: 10 Medication(s) Medication(s): Fentanyl, Lidocaine 1%, Nicardipine, Nitroglycerin and Versed Summary of Findings Indication: High risk NSTEMI, atrial fibrillation with RVR Access: 6 Fr right radial artery Catheters: Reyno Findings: LM -normal caliber, no significant disease LAD -medium caliber, proximal luminal irregularities, 70% mid stenosis, small distal vessel with 80% focal stenosis prior to wrapping around apex. Large high D1 without significant disease. Circumflex -medium caliber, 100% chronic occlusion in the midsegment just after takeoff of OM 2. Distal left PLB fills via left to left collaterals. Proximal OM2 subtotal occlusion and distal portion of vessel fills via left to left collaterals. RCA -large caliber, dominant, 100% proximal chronic total occlusion. Distal vessel fills retrograde via [id number] collaterals. LVEDP -21 Arterial Closure: TR band Summary: 1. Severe multivessel coronary artery disease -70% mid LAD 100% mid circumflex at takeoff of OM 2. Distal left PLB, OM 2 fills via left to left collaterals. 100% proximal RCA chronic total occlusion. Distal vessel fills via [id number] collaterals. 2. Elevated intracardiac filling pressure Recommendations: Referral to tertiary center for consideration of CABG. Resume heparin infusion after TR band removed. Hemodynamics Rest Ao:: 127/79/100 Final Ao: 111/71/89 LV: 115/21 Recommendations Recommendations: CABG Specimens Specimens: None Radiation Exposure (mGy) 831 Contrast (mls) 45 Drains Drains: None Anesthesia Moderate 5539-4233 Procedural Complication(s) None Disposition PCU I attest to the content of the Intraoperative Record and any orders documented therein. Any exceptions are noted below. [facility] Card Cath Procedure Codes Cardiac Catheterization Procedure 1: Cardiovascular Cath Procedures: 68399 Coronaries and LHC (+/-LV) Moderate Sedation Procedure 1: Sedation/Anesthesia: 02101 Mod Sedation by the same physician;Init15 Min Child Age 5 & Up PG Care Time/CCT Total # of Minutes Spent Total Time Spent with Patient: Total time spent is greater than 50% in coordination of care (as documented) at patient's floor/unit and/or counseling patient:
--- NOTE | 2020-12-19 15:46 | Discharge Summary ---
Date of Service December 19, 2020 Admission HPI Per Admitting Provider History obtained from patient, family, and records. Medical history significant for hypertension, anxiety/mood disorder, prediabetes, skin cancer as per records. 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 This week, patient noted intermittent episodes of substernal tightness without radiation associated with diaphoresis both at rest and exertion. Transient episodes. No cough, no S OB, no palpitations. No unusual stress at home. Transient headache symptoms. Patient does not check blood pressure at home. Denies unusual stress. Compliant with medications. SBP 210s upon arrival at the ER. Discomfort relieved by aspirin and nitroglycerin administration at the ER. Patient noted to be in rapid A. fib at the ER. IV Lopressor administered. IV Heparin started at the ER after elevated troponin noted. Subsequent conversion to normal sinus rhythm at the ER. Medical History as above Surgical History : Dental surgery Family History : Heart disease, glioblastoma, COPD, prostate cancer Personal/Social history : Non-smoker, no EtOH intake, office work Principal Diagnosis NSTEMI Severe multivessel coronary artery disease New onset atrial fibrillation Discharge Data Allergies Allergy/AdvReac Type Severity Reaction Status Date / Time No Known Allergies Allergy Unverified 12/18/20 21:13 Consultations 12/18/20 21:43 ED Decision to Admit Stat 12/19/20 00:13 Consult Cardiology Routine 12/19/20 13:29 Consult Cardiac Rehabilitation Routine 12/19/20 15:45 Burn CD for patient Routine Procedures Performed Operation Date: 12/19/20 12:15 Actual Procedures p Cath, Left with Cors and Vent - Carlos Balderas MD Ordered Studies 12/19/20 12:17 CL Cath Imgs for PACS use only Stat Hospital Course (1) Acute non-ST elevation myocardial infarction (NSTEMI): NSTEMI Severe multivessel coronary artery disease S/P Cardiac Cath:Severe multivessel coronary artery disease. 70% mid LAD. 100% mid circumflex at takeoff of OM 2. Distal left PLB, OM 2 fills via left to left collaterals. 100% proximal RCA chronic total occlusion. Distal vessel fills via [id number] collaterals. -ECHO: Left ventricle systolic function is normal. Inferoposterior wall hypokinesis. Mild concentric LVH. EF 50 to 55%. Mild mitral regurgitation. Needs CABG Continue aspirin, Labetalol, statin, IV heparin NTG PRN Appreciate cardiology input Plan to be discharged to tertiary care facility for CABG Patient is accepted by Dr. Silvano Hart at [place] for further management New onset atrial fibrillation with RVR Spontaneously converted to sinus rhythm Continue labetalol On IV heparin for anticoagulation Hypertension Continue current medications Anxiety/mood disorder At baseline Prediabetes HbA1C: of 6.2 DVT Px: IV Heparin Code Status Full Code Disposition [facility] for [facility] Discharge Plan Discharge Items Patient Disposition: Transfer Acute Care Hospital Reason For Visit: ACS Discharge Diagnosis: NSTEMI Severe multivessel coronary artery disease New onset atrial fibrillation Activity: Per Instructions section Exercise/Sports: Wait until after follow-up appointment Non-emergency contact: Primary Care Provider and Hand Method Lasting Machine Operator Call non-emergency contact if: you have any medication questions, your symptoms worsen, your pain is concerning for you and you have a fever Follow-up/Referrals: Kevin Villalba MD [Primary Care Provider] - Diet: Heart Healthy Addtl Attending Provider Instructions: Follow up with for further management Pending Studies at Discharge: No Stand-Alone Forms: My [facility] [employer] Skilled Items Patient informed of condition?: Yes DNR: No Discharge Level of Care: Other Communicable Disease: No Discharge Prognosis: Stable Lines: Peripheral IV Urinary Catheter: No Medications and DC Order Prescriptions: New atorvastatin 40 mg Tablet 40 mg PO HS Qty: 0 RF: 0 nitroglycerin [Nitrostat] 0.4 mg Tablet, Sublingual 0.4 mg sublingual UD PRNQty: 0 RF: 0 Continued albuterol sulfate 90 mcg/actuation HFA aerosol inhaler 2 puff INHALATION Q6H PRN (Reason: Shortness Of Breath Or Wheezing) RF: 0 labetalol 200 mg tablet 200 mg PO BID RF: 0 sertraline 100 mg tablet 150 mg PO DAILY RF: 0 aspirin [Aspir-Low] 81 mg Tablet,Delayed Release (Dr/Ec) 81 mg PO HS RF: 0 diphenhydramine HCl 25 mg Tablet 12.5 mg PO HS PRN (Reason: Insomnia) RF: 0 loratadine 10 mg Tablet 10 mg PO DAILY PRN (Reason: Allergy Symptoms) RF: 0 Discharge Orders: Discharge Order (Routine); Ordered 12/19/20 Ordered By: Jaime Ledbetter Admission Data Admit Date/Time: 12/18/20 22:37 Attending Provider: Jaime Ledbetter Admit Provider: Kyle Muir Primary Care Provider: Kevin Villalba Other Providers: Kyle Muir ; Carlos Balderas
[2020-12-19] MEDS: HEPARIN SODIUM/DEXTROSE 25,000 UNITS/500 ML BAG IV SCH (20:11)
[2020-12-19] MEDS: ATORVASTATIN 40 MG TAB PO SCH (21:23)
[2020-12-19] MEDS: ASPIRIN 81 MG ECTAB PO SCH (21:23)
[2020-12-19 22:14] LABS: Partial Thromboplastin Ratio 1.2; Partial Thromboplastin Time 31.9 Seconds (21.0-31.0)
[2020-12-20 07:18] LABS: Hematocrit (blood only) 43.9 % (42-52); Hemoglobin 14.7 g/dL (14.0-18.0); Mean Corpuscular Hemoglobin 31.6 pg (25-34); Mean Corpuscular Hgb Conc 33.5 g/dL (32-36); Mean Corpuscular Volume 94.4 fL (80-100); Mean Platelet Volume 10.6 fL (7.4-10.4); Platelet Count 228 K/uL (130-400); RDW Coefficient of Variation 14.5 % (11.5-14.5); RDW Standard Deviation 49.9 fL (36.4-46.3); Red Blood Count 4.65 M/uL (4.7-6.1); White Blood Count 9.72 K/uL (4.8-10.8)
[2020-12-20 07:31] LABS: Partial Thromboplastin Ratio 1.4; Partial Thromboplastin Time 37.3 Seconds (21.0-31.0)
[2020-12-20 07:37] LABS: BUN Creatinine Ratio 15.9 (10-20); Creatinine Clr Calc Pharmacy 129.9 ml/min; Magnesium 2.1 mg/dl (1.8-2.4)
[2020-12-20] MEDS: LABETALOL HCL 200 MG TAB PO SCH ×2 (07:52→21:32)
[2020-12-20] MEDS: SERTRALINE HCL 50 MG TABLET PO SCH (07:52)
[2020-12-20] MEDS: HEPARIN SODIUM/DEXTROSE 25,000 UNITS/500 ML BAG IV SCH ×2 (07:55→13:04)
[2020-12-20] MEDS ORDERED: HEPARIN SOD (PORCINE) 1000 UNIT/ML IV ONE ×2 (08:00→23:00)
--- NOTE | 2020-12-20 09:13 | Hospitalist Progress Note ---
Date of Service December 20, 2020 Assessment & Plan (1) Acute non-ST elevation myocardial infarction (NSTEMI): Plan: NSTEMI Severe multivessel coronary artery disease S/P Cardiac Cath:Severe multivessel coronary artery disease. 70% mid LAD. 100% mid circumflex at takeoff of OM 2. Distal left PLB, OM 2 fills via left to left collaterals. 100% proximal RCA chronic total occlusion. Distal vessel fills via [id number] collaterals. -ECHO: Left ventricle systolic function is normal. Inferoposterior wall hypokinesis. Mild concentric LVH. EF 50 to 55%. Mild mitral regurgitation. Needs CABG Continue aspirin, Labetalol, statin, IV heparin NTG PRN Appreciate cardiology input Plan to be discharged to tertiary care facility for CABG Patient is accepted by Dr. Silvano Hart at [place] for further management Waiting for placement New onset atrial fibrillation with RVR Spontaneously converted to sinus rhythm Continue labetalol On IV heparin for anticoagulation Hypertension Continue current medications Anxiety/mood disorder At baseline Prediabetes HbA1C: of 6.2 DVT Px: IV Heparin Code Status Full Code Disposition for CABG Admission and Anticipated Discharge Date Admission Date: December 18, 2020 Subjective Patient is seen and examined at bedside Chest Pain completely resolved No new complaints Denies dyspnea, dizziness, nausea, abdominal pain Waiting for placement Review of Systems Review of Systems: All systems reviewed & are unremarkable except as noted in Subjective Physical Exam Physical Exam: Physical Exam: Vitals signs as noted above General Appearance:Obese, no apparent distress Head: normocephalic, Atraumatic Eyes: normal inspection, EOMI Neck: supple, Trachea midline Respiratory/Chest: Normal breath sounds, CTA, No accessory muscle use Cardiovascular: S1, S2, No murmur Abdomen/GI:Soft, Non tender, Bowel sounds present Extremities/Musculoskeletal:normal inspection, no edema Neurologic/Psych:AAOX3, grossly no focal neurological deficits Skin: normal color, warm Results & Data Results & Data ([facility]) Vital Signs (Past 12 Hours) Vital Signs Temp Pulse Pulse Resp BP Pulse Ox 12/20/20 08:00 74 12/20/20 07:00 36.9 C 70 18 147/93 H 95 12/20/20 03:38 36.6 C 68 18 140/93 94 12/20/20 00:00 83 12/19/20 23:22 36.9 C 80 18 151/95 H 94 Laboratory Results Short CBC 12/20/20 Range/Units 06:51 WBC 9.72 (4.8-10.8) K/uL Hgb 14.7 (14.0-18.0) g/dL Hct 43.9 (42-52) % Plt Count 228 (130-400) K/uL BMP 12/20/20 06:51 Sodium 140 Potassium 4.0 Chloride 108 H Carbon Dioxide 27 BUN 12 Creatinine 0.74 Glucose 112 H Calcium 9.0
--- NOTE | 2020-12-20 09:40 | Electrocardiogram Report ---
Test Reason : Blood Pressure : / mmHG Vent. Rate : 071 BPM Atrial Rate : 071 BPM P-R Int : 144 ms QRS Dur : 110 ms QT Int : 422 ms P-R-T Axes : 055 -02 058 degrees QTc Int : 458 ms Normal sinus rhythm Inferior infarct (cited on or before 18-DEC-2020) Abnormal ECG When compared with ECG of 19-DEC-2020 05:04, Nonspecific T wave abnormality no longer evident in Inferior leads Confirmed by Baldomero Mae ([id number]) on 12/20/2020 9:40:52 AM Referred By: REFERRED SELF Confirmed By:Baldomero Mae
--- NOTE | 2020-12-20 10:33 | Cardiology Progress Note ---
Date of Service December 20, 2020 Assessment & Plan (1) CAD (coronary artery disease): Plan: -cardiac catheterization revealed severe 3 vessel disease. -remains asymptomatic on intravenous heparin. -awaiting transfer to [facility] for possible CABG. (2) Atrial fibrillation with rapid ventricular response: Plan: -converted to sinus rhythm after intravenous metoprolol while in the emergency room. -agree with intravenous heparin. -agree with continuation of labetalol. (3) Hypertension: Plan: -adequate control on current regimen. -mild LVH noted on echocardiogram. Admission and Anticipated Discharge Date Admission Date: December 18, 2020 Subjective The patient is resting comfortably in bed without complaints of chest pain, dyspnea, or palpitations. Physical Exam Physical Exam: In general this is a well-developed well-nourished white male in no acute distress. HEENT exam is negative. Neck is supple with full carotid upstrokes. There are no carotid bruits. No JVD. There is no thyromegaly. Cardiovascular exam reveals a regular rhythm with a normal S1 and S2. No S3, S4, or murmurs are noted. Lungs are clear without rales, rhonchi, or wheezes. Abdomen is soft and nontender without bruits. Extremities reveal intact radial artery and posterior tibial pulses bilaterally. There is no peripheral edema. Results & Data ([facility]) Vital Signs (Past 12 Hours) Vital Signs Temp Pulse Pulse Resp BP Pulse Ox 12/20/20 08:00 74 12/20/20 07:00 36.9 C 70 18 147/93 H 95 12/20/20 03:38 36.6 C 68 18 140/93 94 12/20/20 00:00 83 12/19/20 23:22 36.9 C 80 18 151/95 H 94 PG Care Time/CCT Total # of Minutes Spent Total Time Spent with Patient: Total time spent is greater than 50% in coordination of care (as documented) at patient's floor/unit and/or counseling patient: Coding Level of Care Code 62303 Subseq Hosp Care Lvl 3 Diagnoses Atrial fibrillation with rapid ventricular response I48.91 Hypertension I10 CAD (coronary artery disease) I25.10
[2020-12-20 14:09] LABS: Partial Thromboplastin Ratio 1.5; Partial Thromboplastin Time 39.6 Seconds (21.0-31.0)
[2020-12-20 20:50] LABS: Partial Thromboplastin Ratio 1.4; Partial Thromboplastin Time 37.9 Seconds (21.0-31.0)
[2020-12-20] MEDS: ASPIRIN 81 MG ECTAB PO SCH (21:33)
[2020-12-20] MEDS: ATORVASTATIN 40 MG TAB PO SCH (21:33)
[2020-12-21] MEDS: HEPARIN SODIUM/DEXTROSE 25,000 UNITS/500 ML BAG IV SCH ×2 (04:34→19:24)
[2020-12-21 06:41] LABS: Hematocrit (blood only) 44.4 % (42-52); Mean Corpuscular Hgb Conc 33.8 g/dL (32-36); Mean Corpuscular Volume 91.7 fL (80-100); Mean Platelet Volume 10.6 fL (7.4-10.4); Platelet Count 234 K/uL (130-400); RDW Coefficient of Variation 14.3 % (11.5-14.5); RDW Standard Deviation 48.2 fL (36.4-46.3); Red Blood Count 4.84 M/uL (4.7-6.1); White Blood Count 9.77 K/uL (4.8-10.8)
[2020-12-21 07:00] LABS: BUN Creatinine Ratio 16.7 (10-20); Calcium 9.5 mg/dl (8.5-10.1); Creatinine Clr Calc Pharmacy 129.1 ml/min; Potassium 3.8 mmol/L (3.5-5.1)
[2020-12-21 07:04] LABS: Partial Thromboplastin Ratio 1.8
[2020-12-21 07:13] LABS: Partial Thromboplastin Time 47.5 Seconds (21.0-31.0)
[2020-12-21] MEDS: LABETALOL HCL 200 MG TAB PO SCH ×2 (08:25→20:30)
[2020-12-21] MEDS: SERTRALINE HCL 50 MG TABLET PO SCH (08:25)
--- NOTE | 2020-12-21 11:39 | Cardiology Progress Note ---
Date of Service December 21, 2020 Assessment & Plan (1) CAD (coronary artery disease): Plan: -severe 3 vessel disease on cardiac catheterization.. -asymptomatic on intravenous heparin. -awaiting transfer to [facility] for probable bypass. (2) Atrial fibrillation with rapid ventricular response: Plan: -converted to sinus rhythm after intravenous metoprolol while in the ER. -agree with intravenous heparin. -continue labetalol. (3) Hypertension: Plan: -adequate control on current regimen. -mild LVH on echocardiogram. Admission and Anticipated Discharge Date Admission Date: December 18, 2020 Subjective The patient is resting comfortably in bed without complaints of chest pain or dyspnea. Still awaiting transfer to [facility]. Physical Exam Physical Exam: In general this is a well-developed well-nourished white male in no acute distress. HEENT exam is negative. Neck is supple with full carotid upstrokes. There are no carotid bruits. No JVD. There is no thyromegaly. Cardiovascular exam reveals a regular rhythm with a normal S1 and S2. No S3, S4, or murmurs are noted. Lungs are clear without rales, rhonchi, or wheezes. Abdomen is soft and nontender without bruits. Extremities reveal intact radial artery and posterior tibial pulses bilaterally. There is no peripheral edema. Results & Data ([facility]) Vital Signs (Past 12 Hours) Vital Signs Temp Pulse Pulse Resp BP Pulse Ox 12/21/20 10:32 36.5 C 71 19 126/77 95 12/21/20 09:15 94 H 12/21/20 07:14 36.7 C 65 16 146/89 H 95 12/21/20 03:24 36.6 C 68 15 143/93 H 95 12/21/20 00:00 71 Diagnostic Findings panel monitor is benign. PG Care Time/CCT Total # of Minutes Spent Total Time Spent with Patient: Total time spent is greater than 50% in coordination of care (as documented) at patient's floor/unit and/or counseling patient: Coding Level of Care Code 35085 Subseq Hosp Care Lvl 3 Diagnoses CAD (coronary artery disease) I25.10 Atrial fibrillation with rapid ventricular response I48.91 Hypertension I10
--- NOTE | 2020-12-21 13:10 | Hospitalist Progress Note ---
Date of Service December 21, 2020 Assessment & Plan (1) Acute non-ST elevation myocardial infarction (NSTEMI): Plan: NSTEMI Severe multivessel coronary artery disease S/P Cardiac Cath:Severe multivessel coronary artery disease. 70% mid LAD. 100% mid circumflex at takeoff of OM 2. Distal left PLB, OM 2 fills via left to left collaterals. 100% proximal RCA chronic total occlusion. Distal vessel fills via [id number] collaterals. -ECHO: Left ventricle systolic function is normal. Inferoposterior wall hypokinesis. Mild concentric LVH. EF 50 to 55%. Mild mitral regurgitation. Needs CABG Continue aspirin, Labetalol, statin, IV heparin NTG PRN Appreciate cardiology input Plan to be discharged to tertiary care facility for CABG Patient is accepted by Dr. Silvano Hart at [place] for further management Waiting for transfer to tertiary care facility Continue IV heparin Currently asymptomatic New onset atrial fibrillation with RVR Spontaneously converted to sinus rhythm Continue labetalol On IV heparin for anticoagulation Hypertension Continue current medications Anxiety/mood disorder At baseline Prediabetes HbA1C: of 6.2 DVT Px: IV Heparin Code Status Full Code Disposition [facility] for CABG Admission and Anticipated Discharge Date Admission Date: December 18, 2020 Subjective Patient is seen and examined at bedside States feeling well today No new complaints Waiting for transfer to [facility] Denies any bleeding issues while on IV heparin Also denies dyspnea, dizziness, nausea, abdominal pain Waiting for placement Review of Systems Review of Systems: All systems reviewed & are unremarkable except as noted in Subjective Physical Exam Physical Exam: Physical Exam: Vitals signs as noted above General Appearance:Obese, no apparent distress Head: normocephalic, Atraumatic Eyes: normal inspection, EOMI Neck: supple, Trachea midline Respiratory/Chest: Normal breath sounds, CTA, No accessory muscle use Cardiovascular: S1, S2, No murmur Abdomen/GI:Soft, Non tender, Bowel sounds present Extremities/Musculoskeletal:normal inspection, no edema Neurologic/Psych:AAOX3, grossly no focal neurological deficits Skin: normal color, warm Results & Data Results & Data ([facility]) Vital Signs (Past 12 Hours) Vital Signs Temp Pulse Pulse Resp BP Pulse Ox 12/21/20 10:32 36.5 C 71 19 126/77 95 12/21/20 09:15 94 H 12/21/20 07:14 36.7 C 65 16 146/89 H 95 12/21/20 03:24 36.6 C 68 15 143/93 H 95 Laboratory Results Short CBC 12/21/20 Range/Units 06:19 WBC 9.77 (4.8-10.8) K/uL Hgb 15.0 (14.0-18.0) g/dL Hct 44.4 (42-52) % Plt Count 234 (130-400) K/uL BMP 12/21/20 06:19 Sodium 140 Potassium 3.8 Chloride 108 H Carbon Dioxide 25 BUN 12 Creatinine 0.74 Glucose 117 H Calcium 9.5
[2020-12-21] MEDS: ASPIRIN 81 MG ECTAB PO SCH (20:30)
[2020-12-21] MEDS: ATORVASTATIN 40 MG TAB PO SCH (20:30)
--- NOTE | 2020-12-22 07:39 | Discharge Summary ---
Date of Service December 22, 2020 Admission HPI Per Admitting Provider Chief Complaint: Chest pain Primary Care Provider: Kevin Villalba MD History obtained from patient, family, and records. Medical history significant for hypertension, anxiety/mood disorder, prediabetes, skin cancer as per records. 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 This week, patient noted intermittent episodes of substernal tightness without radiation associated with diaphoresis both at rest and exertion. Transient episodes. No cough, no S OB, no palpitations. No unusual stress at home. Transient headache symptoms. Patient does not check blood pressure at home. Denies unusual stress. Compliant with medications. SBP 210s upon arrival at the ER. Discomfort relieved by aspirin and nitroglycerin administration at the ER. Patient noted to be in rapid A. fib at the ER. IV Lopressor administered. IV Heparin started at the ER after elevated troponin noted. Subsequent conversion to normal sinus rhythm at the ER. Admission Exam Per Admitting Provider Physical Exam Physical Exam: GENERAL: Comfortable, slightly anxious, pleasant, obese, no respiratory distress SKIN: Normal color, warm HEENT: Partial alopecia, pink palpebral conjunctivae, no ptosis, dry buccal mucosa NECK : Supple, short neck, no tenderness CHEST : CTA, no tenderness HEART : RRR, no obvious murmurs ABDOMEN: Some distention, nontender EXTREMITIES : No LE swelling/tenderness, no other conspicuous deformities noted NEUROLOGIC : Coherent, no facial asymmetry, no other gross focality Principal Diagnosis NSTEMI Severe multivessel coronary artery disease New onset atrial fibrillation Discharge Data Allergies Allergy/AdvReac Type Severity Reaction Status Date / Time No Known Allergies Allergy Unverified 12/18/20 21:13 Consultations 12/18/20 21:43 ED Decision to Admit Stat 12/19/20 00:13 Consult Cardiology Routine 12/19/20 13:29 Consult Cardiac Rehabilitation Routine 12/19/20 15:45 Burn CD for patient Routine Procedures Performed Operation Date: 12/19/20 12:15 Actual Procedures p Cath, Left with Cors and Vent - Carlos Balderas MD Ordered Studies 12/19/20 12:17 CL Cath Imgs for PACS use only Stat Hospital Course (1) Acute non-ST elevation myocardial infarction (NSTEMI): NSTEMI Severe multivessel coronary artery disease S/P Cardiac Cath:Severe multivessel coronary artery disease. 70% mid LAD. 100% mid circumflex at takeoff of OM 2. Distal left PLB, OM 2 fills via left to left collaterals. 100% proximal RCA chronic total occlusion. Distal vessel fills via [id number] collaterals. -ECHO: Left ventricle systolic function is normal. Inferoposterior wall hypokinesis. Mild concentric LVH. EF 50 to 55%. Mild mitral regurgitation. Needs CABG Continue aspirin, Labetalol, statin, IV heparin NTG PRN Appreciate cardiology input Plan to be discharged to tertiary care facility for CABG Patient is accepted by Dr. Silvano Hart at [place] for further management Waiting for transfer to tertiary care facility Continue IV heparin Currently asymptomatic New onset atrial fibrillation with RVR Spontaneously converted to sinus rhythm Continue labetalol On IV heparin for anticoagulation Hypertension Continue current medications Anxiety/mood disorder At baseline Prediabetes HbA1C: of 6.2 DVT Px: IV Heparin Code Status Full Code Disposition [facility] for [facility]G Total Time Total Time Spent Total Time Spent (In Minutes): 43 minutes Discharge Plan Discharge Items Patient Disposition: Transfer Acute Care Hospital Reason For Visit: ACS Discharge Diagnosis: NSTEMI Severe multivessel coronary artery disease New onset atrial fibrillation Activity: Per Instructions section Exercise/Sports: Wait until after follow-up appointment Non-emergency contact: Primary Care Provider and Insurance And Financial Services Agent Call non-emergency contact if: you have any medication questions, your symptoms worsen, your pain is concerning for you and you have a fever Follow-up/Referrals: Kevin Villalba MD [Primary Care Provider] - Diet: Heart Healthy Addtl Attending Provider Instructions: Follow up with for further management Pending Studies at Discharge: No Stand-Alone Forms: My [facility] Skilled Items Patient informed of condition?: Yes DNR: No Discharge Level of Care: Other Communicable Disease: No Discharge Prognosis: Stable Lines: Peripheral IV Urinary Catheter: No Medications and DC Order Prescriptions: New atorvastatin 40 mg Tablet 40 mg PO HS Qty: 0 RF: 0 nitroglycerin [Nitrostat] 0.4 mg Tablet, Sublingual 0.4 mg sublingual UD PRNQty: 0 RF: 0 Continued albuterol sulfate 90 mcg/actuation HFA aerosol inhaler 2 puff INHALATION Q6H PRN (Reason: Shortness Of Breath Or Wheezing) RF: 0 labetalol 200 mg tablet 200 mg PO BID RF: 0 sertraline 100 mg tablet 150 mg PO DAILY RF: 0 aspirin [Aspir-Low] 81 mg Tablet,Delayed Release (Dr/Ec) 81 mg PO HS RF: 0 diphenhydramine HCl 25 mg Tablet 12.5 mg PO HS PRN (Reason: Insomnia) RF: 0 loratadine 10 mg Tablet 10 mg PO DAILY PRN (Reason: Allergy Symptoms) RF: 0 Discharge Orders: Discharge Order (Routine); Ordered 12/19/20 Ordered By: Jaime Brown/Other Patient Handouts: A1C, Prediabetes, 5 Steps for Eating Healthier Admission Data Admit Date/Time: 12/18/20 22:37 Attending Provider: Jaime Ledbetter Admit Provider: Kyle Muir Primary Care Provider: Kevin Villalba Other Providers: Kyle Muir ; Carlos Balderas Other Interventions: Discharge Summary Assessment (RN) Last Done: 12/22/20 00:19
== END 2020-12-22 00:12 | disposition short-term general hospital (02) | DRG 282 ==
LOC: ED 19:40 → 2S 22:37